=== PATIENT | male | born 1990 | race Caucasian/White ===

== ENCOUNTER 2017-06-12 16:17 | Emergency (ER) | payer SELFPAY ==
[~2017-06-12] VITALS: Ht 157.5 cm; Wt 67.0 kg
[2017-06-12] MEDS ORDERED: KETOROLAC 60MG/2ML VIAL IM ONE (18:00)
[2017-06-12 18:59] VITALS: BP 130/60
== END 2017-06-12 19:06 | disposition home or self-care (01) ==
LOC: ER 16:17
DX: S93.401A Sprain of unspecified ligament of right ankle, initial encounter (principal); W22.8XXA Striking against or struck by other objects, initial encounter; Y93.89 Activity, other specified; Y99.8 Other external cause status; Y92.89 Other specified places as the place of occurrence of the external cause
CPT/HCPCS: 73610; 73630; 96372; 99284; J1885